=== PATIENT | female | born 1990 | race Caucasian/White ===

== ENCOUNTER 2017-04-01 20:10 | Emergency (ER) | payer MEDICAID ==
--- NOTE | 2017-04-01 20:15 | ED.PDOC ---
History of Present Illness - General Chief Complaint: Trauma Stated Complaint: fall Time Seen by Provider: 04/01/17 20:13 Source: patient, RN notes reviewed, family Exam Limitations: no limitations - History of Present Illness Initial Comments: Rachell Mendoza 27 y/o female stated that she tripped on the rough cement at home face hitting the concrete pavement no LOC but has laceration left side face and pain on moving both jaws. Occurred: just prior to arrival Injuries/Pain Location: face, other - mouth Reason for Fall: slipped Loss of Consciousness: no loss of consciousness Improving Factors: immobilization Worsening Factors: eating, movement - of mouth, other - talking Associated Symptoms (Fall): denies symptoms Allergies/Adverse Reactions: Allergies Penicillins Allergy (Verified 04/01/17 22:41) Sulfa Antibiotics Allergy (Verified 04/01/17 22:39) Home Medications: Ambulatory Orders Citalopram Hydrobromide [CeleXA] 20 mg PO DAILY 04/01/17 Phentermine HCl 37.5 mg PO DAILY 04/01/17 Review of Systems - Review of Systems Constitutional: States: no symptoms reported EENTM: States: see HPI Respiratory: States: no symptoms reported Cardiology: States: no symptoms reported Gastrointestinal/Abdominal: States: no symptoms reported Genitourinary: States: no symptoms reported Musculoskeletal: States: no symptoms reported Skin: States: see HPI Neurological: States: anxiety Endocrine: States: no symptoms reported Past Medical History (General) - Patient Medical History Hx Seizures: No Hx Asthma: No Hx Hypertension: No Hx Other PMH: Yes - anxiety Surgical History: appendectomy - Vaccination History Hx Tetanus, Diphtheria Vaccination: Yes Immunizations Up to Date: Yes - Social History Hx Alcohol Use: Yes - Activities of Daily Living Patient Lives Alone: No - family Grooming Ability: Independent Eating (Feeding) Ability: Independent Toileting Ability: Independent Physical Exam - Physical Exam General Appearance: Alert, No apparent distress, Other - in pain Head Injury: no evidence of injury Eye Exam: bilateral normal ENT Exam: hearing grossly normal, other - oral mucosal laceration;pain opening mouth with bilateral mandibular tenderness Peripheral Pulses: radial,right: 2+, radial,left: 2+ Cardiovascular/Respiratory: regular rate, rhythm, no M/R/G, normal peripheral pulses, no JVD, normal breath sounds Gastrointestinal/Abdominal: normal bowel sounds, non tender, soft, no organomegaly Back Exam: normal inspection, no CVA tenderness Extremity Exam: no evidence of injury, normal range of motion, non-tender Neurologic: no motor/sensory deficits, alert, oriented x 3 Skin Exam: normal color, warm/dry - Nikos Coma Score Best Eye Response (Nikos): (4) open spontaneously Best Verbal Response ([place]): (5) oriented Best Motor Response ([place]): (6) obeys commands [place] Total: 15 Progress - Results/Orders Results/Orders: Vital Signs - 8 hr 04/01/17 20:10 Temperature 99.0 F Pulse Rate [ 120 H monitor] Respiratory 20 Rate Blood Pressure 130/89 [Right Arm] O2 Sat by Pulse 98 Oximetry 04/01/17 20:18 Cervical Spine,3 Views [RAD] Stat URINALYSIS Stat 04/01/17 22:09 UA [URINALYSIS] Stat Laboratory Results WBC 11.3 K/mm3 (4.8-10.8) H 04/01/17 20:30 RBC 4.77 M/mm3 (4.20-5.40) 04/01/17 20:30 Hgb 14.6 gm/dL (12.0-16.0) 04/01/17 20:30 Hct 43.9 % (36.0-47.0) 04/01/17 20:30 MCV 92.2 fl (81.0-99.0) 04/01/17 20:30 MCH 30.6 pg (27.0-31.0) 04/01/17 20:30 MCHC 33.2 g/dL (33.0-37.0) 04/01/17 20:30 RDW 13.8 % (11.5-14.5) 04/01/17 20:30 Plt Count 253 K/mm3 (130-400) 04/01/17 20:30 MPV 8.8 fl (7.40-10.4) 04/01/17 20:30 Absolute Neuts (auto) 7.10 K/uL (1.8-6.8) H 04/01/17 20:30 Absolute Lymphs (auto) 3.20 K/uL (1.0-3.4) 04/01/17 20:30 Absolute Monos (auto) 0.70 K/uL (0.2-0.8) 04/01/17 20:30 Absolute Eos (auto) 0.10 K/uL (0.0-0.4) 04/01/17 20:30 Absolute Basos (auto) 0.10 K/uL (0.0-0.1) 04/01/17 20:30 Neutrophils % 62.9 % (42.0-78.0) 04/01/17 20:30 Lymphocytes % 28.6 % (20.0-50.0) 04/01/17 20:30 Monocytes % 6.5 % (2.0-9.0) 04/01/17 20:30 Eosinophils % 1.3 % (1.0-5.0) 04/01/17 20:30 Basophils % 0.7 % (0.0-2.0) 04/01/17 20:30 Sodium 138 mmol/L (135-145) 04/01/17 20:30 Potassium 3.9 mmol/L (3.6-5.0) 04/01/17 20:30 Chloride 108 mmol/L (101-111) 04/01/17 20:30 Carbon Dioxide 22 mmol/L (21-31) 04/01/17 20:30 Anion Gap 11.9 (12-18) L 04/01/17 20:30 BUN 9 mg/dL (7-18) 04/01/17 20:30 Creatinine 0.70 mg/dL (0.6-1.3) 04/01/17 20:30 BUN/Creatinine Ratio 12.9 (10-20) 04/01/17 20:30 Random Glucose 81 mg/dL (70-105) 04/01/17 20:30 Serum Osmolality 273.4 mOsm/L (275-295) L 04/01/17 20:30 Calcium 9.1 mg/dL (8.4-10.2) 04/01/17 20:30 Total Bilirubin 0.8 mg/dL (0.2-1.0) 04/01/17 20:30 AST 22 IU/L (10-42) 04/01/17 20:30 ALT 19 IU/L (10-60) 04/01/17 20:30 Alkaline Phosphatase 71 IU/L (42-121) 04/01/17 20:30 Serum Total Protein 8.4 gm/dL (6.4-8.2) H 04/01/17 20:30 Albumin 4.5 g/dl (3.2-5.5) 04/01/17 20:30 Globulin 3.9 gm/dL (2.3-3.5) H 04/01/17 20:30 Albumin/Globulin Ratio 1.2 (1.1-1.9) 04/01/17 20:30 Serum HCG, Qual Negative 04/01/17 20:30 Urine Color Yellow (Yellow) 04/01/17 22:00 Urine Appearance Sl cloudy (Clear) 04/01/17 22:00 Urine pH 5.0 (4.5-7.8) 04/01/17 22:00 Ur Specific [place] <= 1.005 (1.005-1.030) 04/01/17 22:00 Urine Protein Negative mg/dL 04/01/17 22:00 Urine Glucose (UA) Negative mg/dL (Negative) 04/01/17 22:00 Urine Ketones 15 mg/dL (NEGATIVE) H 04/01/17 22:00 Urine Blood Moderate (Negative) H 04/01/17 22:00 Urine Nitrite Negative 04/01/17 22:00 Urine Bilirubin Negative (NEGATIVE) 04/01/17 22:00 Urine Urobilinogen 0.2 mg/dL (0.2-1.0) 04/01/17 22:00 Ur Leukocyte Esterase Negative (Negative) 04/01/17 22:00 Urine RBC 0-1 /hpf 04/01/17 22:00 Urine WBC 0-1 /hpf 04/01/17 22:00 Ur Epithelial Cells 10-20 /hpf 04/01/17 22:00 Amorphous Sediment Trace 04/01/17 22:00 Urine Bacteria Rare 04/01/17 22:00 Urine Opiates Screen Negative ng/mL (2000) 04/01/17 22:00 Urine Barbiturates Negative ng/mL (200) 04/01/17 22:00 Ur Phencyclidine Scrn Negative ng/mL (25) 04/01/17 22:00 U Amphetamin/Meth Scrn Negative ng/mL (1000) 04/01/17 22:00 U Benzodiazepines Scrn Negative ng/mL (200) 04/01/17 22:00 U Cocaine Metab Screen Negative ng/mL (300) 04/01/17 22:00 U Cannabinoids Screen Negative ng/mL (50) 04/01/17 22:00 Ethyl Alcohol 167.80 mg/dL (0-79) H* 04/01/17 20:30 - EKG/XRAY/CT XRAY: facial bones - fracture both mandibles CT Ordered: Yes - head/c-spine- no acute abnormalities Procedures - Laceration/Wound Repair Left Face Wound Length (cm): 1 Wound's Depth, Shape: into muscle, linear Wound Explored: no foreign body removed Irrigated w/ Saline (cc's): 30 Betadine Prep?: No Anesthesia: Lidocaine w/ Epi Volume Anesthetic (cc's): 10 Wound Repaired With: sutures Suture Size/Type: vicryl rapide Number of Sutures: 3 Layer Closure?: No Sterile Dressing Applied?: Yes Splint Applied?: Yes - jaw Departure - Departure Clinical Impression: Fall at home Qualifiers: Encounter type: initial encounter Qualified Code(s): W19.XXXA - Unspecified fall, initial encounter Fracture of mandible, closed Qualifiers: Encounter type: initial encounter Mandible location: body Qualified Code(s): S02.600A - Fracture of unspecified part of body of mandible, initial encounter for closed fracture Time of Disposition: 23:21 - Transfer to [facility]-Hospital Disposition: Discharge to Home or Self Care Condition: Good Referrals: Donnie Dacosta MD [Primary Care Provider] - 1-2 Weeks Home Medications: Ambulatory Orders Citalopram Hydrobromide [CeleXA] 20 mg PO DAILY 04/01/17 Phentermine HCl 37.5 mg PO DAILY 04/01/17
[2017-04-01] MEDS ORDERED: MORPHINE SULFATE INJ 10 MG/ML VIAL IV ONE ×4 (20:18→23:37)
[2017-04-01] MEDS ORDERED: LIDOCAINE 1% 10 ML VIAL INJ ONE (20:22)
[2017-04-01] MEDS ORDERED: LIDOCAINE 1% W/ EPINEPHRINE 20 ML VIAL INJ ONE (20:23)
[2017-04-01] MEDS ORDERED: LIDOCAINE 4% TOPICAL 50 ML BTTL TOP ONE (21:08)
--- NOTE | 2017-04-01 21:32 | RAD ---
EXAM: Three view(s) of the facial bones. INDICATION: Pain. COMPARISON: None. FINDINGS: There are mildly displaced oblique fractures involving the right and left side of the mandible. There is soft tissue swelling around the fracture sites. The nasal bones are intact. The paranasal sinuses are clear. IMPRESSION: Mildly displaced fractures involving the right and left sides of the mandible. Electronically signed by: Francois Andrew MD 04/01/2017 9:33 PM CDT Workstation: [id number]
--- NOTE | 2017-04-01 22:07 | CT ---
EXAM: CT head without contrast. INDICATION: Headache. TECHNIQUE: Contiguous axial CT images of the brain. Intravenous contrast: Absent. DLP 1064 mGy-cm. This exam was performed according to our departmental dose-optimization program, which includes automated exposure control, adjustment of the mA and/or kV according to patient size and/or use of iterative reconstruction technique. COMPARISON: None. FINDINGS: Subcutaneous: There is soft tissue swelling around the mandible, left greater than right. No acute intracranial hemorrhage. No midline shift. No mass effect. Ventricles: No hydrocephalus. Clayton-white differentiation preserved. Paranasal sinuses/mastoid air cells: Visualized portions are aerated. Bones/orbits: There is a displaced fracture involving the left mandible with displacement of the left mandibular ramus by approximately one shaft width in relation to the proximal body. There is a mildly displaced oblique fracture involving the right mandible. IMPRESSION: 1. No CT evidence of acute intracranial hemorrhage. 2. Displaced fractures involving the right and left mandible Electronically signed by: Francois Andrew MD 04/01/2017 10:08 PM CDT Workstation: [id number]
--- NOTE | 2017-04-01 22:09 | CT ---
EXAM: CT cervical spine without contrast. INDICATION: Trauma. Neck pain. TECHNIQUE: Contiguous axial CT images of the cervical spine. Intravenous contrast: Absent. Reformats: MPRs created and utilized. DLP 353 mGy-cm. This exam was performed according to our departmental dose-optimization program, which includes automated exposure control, adjustment of the mA and/or kV according to patient size and/or use of iterative reconstruction technique. COMPARISON: None. FINDINGS: Alignment: Preserved. Fracture: No acute fracture or subluxation of the cervical spine. There are displaced fractures involving the mandible Odontoid process: Intact. Prevertebral soft tissues: No edema. Spondylosis: None. Other: None. IMPRESSION: 1. No CT evidence of acute osseous injury of the cervical spine. 2. Displaced fractures involving the mandible. Electronically signed by: Francois Andrew MD 04/01/2017 10:09 PM CDT Workstation: [id number]
[2017-04-01] MEDS ORDERED: CLINDAMYCIN IV 600MG 600 MG in PREMIX BAG 1 BAG IVPB ONE (23:20)
[2017-04-01] MEDS ORDERED: CLINDAMYCIN IV 600MG 50 ML IVPB ONE (23:35)
[2017-04-01 23:48] VITALS: BP 133/75; TEMP 98.9; O2SAT 99
== END 2017-04-02 00:05 | disposition home or self-care (01) ==
LOC: ER 20:10
DX: S02.609A Fracture of mandible, unspecified, initial encounter for closed fracture (principal); F41.9 Anxiety disorder, unspecified; Z88.0 Allergy status to penicillin; Z88.2 Allergy status to sulfonamides; W01.0XXA Fall on same level from slipping, tripping and stumbling without subsequent striking against object, initial encounter; Y92.009 Unspecified place in unspecified non-institutional (private) residence as the place of occurrence of the external cause
CPT/HCPCS: 36415; 70150; 70450; 72040; 72125; 80053; 80307; 80320; 81001; 84703; 85025; J2270; J3490

== ENCOUNTER 2017-05-15 20:36 | Emergency (ER) | payer OTHER ==
[2017-05-15 20:59] VITALS: TEMP 98.4
--- NOTE | 2017-05-15 21:35 | ED.PDOC ---
History of Present Illness - General Chief Complaint: General Stated Complaint: infection to jaw incision Time Seen by Provider: 05/15/17 21:31 Source: patient Exam Limitations: no limitations - History of Present Illness Initial Comments: Rachell Brunson 27 y/o female with ORIF of bilateral jaw fracture on 04/02/2017 seen today reporting drainage incision site and pain for the last 3 days.No fever Timing/Duration: other - 3 days Severity: moderate Improving Factors: nothing Worsening Factors: rest Associated Symptoms: denies symptoms Allergies/Adverse Reactions: Allergies Clindamycin Allergy (Verified 05/15/17 21:10) Penicillins Allergy (Verified 04/01/17 22:41) Sulfa Antibiotics Allergy (Verified 04/01/17 22:39) Sulfamethoxazole w/Trimethoprim [From Bactrim] Allergy (Verified 05/15/17 21:08) Home Medications: Ambulatory Orders Citalopram Hydrobromide [CeleXA] 20 mg PO DAILY 04/01/17 Phentermine HCl 37.5 mg PO DAILY 04/01/17 Doxycycline Hyclate 100 mg PO BID #14 tab 05/15/17 Metronidazole 500 mg PO BID #14 tab 05/15/17 Review of Systems - Review of Systems Constitutional: States: no symptoms reported EENTM: States: no symptoms reported Respiratory: States: no symptoms reported Cardiology: States: no symptoms reported Gastrointestinal/Abdominal: States: no symptoms reported Genitourinary: States: no symptoms reported Musculoskeletal: States: no symptoms reported Skin: States: see HPI Neurological: States: no symptoms reported Past Medical History (General) - Patient Medical History Hx Seizures: No Hx Stroke: No Hx Dementia: No Hx Asthma: Yes Hx of COPD: No Hx Cardiac Disorders: No Hx Congestive Heart Failure: No Hx Pacemaker: No Hx Hypertension: No Hx Thyroid Disease: No Hx Diabetes: No Hx Gastroesophageal Reflux: Yes Hx Renal Disease: Yes - kidney stones Hx Cancer: No Hx of HIV: No Hx Hepatitis C: No Hx MRSA: No Hx Other PMH: Yes - anxiety Surgical History: appendectomy, other - ORIF-jaw fracture - Vaccination History Hx Tetanus, Diphtheria Vaccination: Yes Hx Influenza Vaccination: No Hx Pneumococcal Vaccination: No Immunizations Up to Date: Yes - Social History Hx Tobacco Use: Yes Hx Chewing Tobacco Use: No Hx Alcohol Use: Yes - occasional Hx Substance Use: No Hx Substance Use Treatment: No Hx Depression: Yes Feels Threatened In Home Enviroment: No Feels Threatened In a Relationship: No Hx Physical Abuse: No Hx Emotional Abuse: No Hx Suspected Abuse: No - Female History Patient is a Female of Child Bearing Age (10 -59 yrs old): No - tubal Patient : No Family Medical History - Family History Mother Living Status: Still Living Hx Family Hypertension: Yes Hx Family Diabetes: Yes Hx Family Cancer: Yes Hx Family;Other: blood clotting disorder Physical Exam - Physical Exam General Appearance: Alert, Comfortable, No apparent distress Eye Exam: bilateral normal Ears, Nose, Throat: hearing grossly normal, normal ENT inspection, normal pharynx, other - teeth braces intact Neck: full range of motion, supple, other - tenderness with induration incision site left side jaw Respiratory: chest non-tender, lungs clear, normal breath sounds Cardiovascular/Chest: normal peripheral pulses, no murmur Peripheral Pulses: radial,right: 1+, radial,left: 1+ Gastrointestinal/Abdominal: normal bowel sounds, non tender, soft Back Exam: normal inspection, no CVA tenderness Extremity: normal range of motion, non-tender Neurologic: alert, oriented x 3 Departure - Departure Clinical Impression: Infection involving stitch with abscess Time of Disposition: 21:41 Disposition: Discharge to Home or Self Care Condition: Good Departure Forms: ED Discharge - Pt. Copy, Patient Portal Self Enrollment Referrals: SRINIVAS CASH [Primary Care Provider] - 1-2 Weeks Prescriptions: Doxycycline Hyclate 100 mg PO BID #14 tab Metronidazole 500 mg PO BID #14 tab Home Medications: Ambulatory Orders Citalopram Hydrobromide [CeleXA] 20 mg PO DAILY 04/01/17 Phentermine HCl 37.5 mg PO DAILY 04/01/17 Doxycycline Hyclate 100 mg PO BID #14 tab 05/15/17 Metronidazole 500 mg PO BID #14 tab 05/15/17 Additional Instructions: Keep appointment with maxillofacial surgeon sunday05/18/2017
[2017-05-15] MEDS ORDERED: DOXYCYCLINE HYCLATE CAP 100 MG CAP PO ONE (21:44)
[2017-05-15] MEDS ORDERED: metroNIDAZOLE 500 MG TAB PO ONE (21:45)
[2017-05-15 21:57] VITALS: BP 115/76; O2SAT 97
== END 2017-05-15 21:57 | disposition home or self-care (01) ==
LOC: ER 20:36
DX: T81.4XXA Infection following a procedure, initial encounter (principal); L03.211 Cellulitis of face; Z88.3 Allergy status to other anti-infective agents; Z88.2 Allergy status to sulfonamides; Z88.0 Allergy status to penicillin; Z79.899 Other long term (current) drug therapy; Z87.891 Personal history of nicotine dependence; Z83.2 Family history of diseases of the blood and blood-forming organs and certain disorders involving the immune mechanism

== ENCOUNTER → 2017-05-15 | Outpatient (CLI) | payer OTHER ==
--- NOTE | 2017-05-16 15:42 | CT ---
EXAM DESCRIPTION: CT ABDOMEN AND PELVIS WITHOUT AND WITH CONTRAST CLINICAL HISTORY: Other microscopic hematuria COMPARISON: None Available. TECHNIQUE: CT of the abdomen and pelvis are performed prior to and during IV bolus administration of 100 mL of IV contrast. FINDINGS: The lung bases are clear of infiltrate. Liver is normal in size and parenchymal appearance. Spleen, pancreas, and kidneys are unremarkable. There is no lymphadenopathy, inflammation, or free fluid observed. IMPRESSION: Normal study This exam was performed according to our departmental dose-optimization program, which includes automated exposure control, adjustment of the mA and/or kV according to patient size and/or use of iterative reconstruction technique. Electronically signed by: Brda Hinkle MD 05/16/2017 3:41 PM CDT
== END ==
LOC: CT 08:49
PROVIDERS: ATTEND Urology
DX: R31.29 Other microscopic hematuria (principal)